=== PATIENT | female | born 1975 | race African-American/Black ===

== ENCOUNTER 2018-12-13 07:01 | Day surgery (SDC) | payer BC ==
[2018-12-12 08:54] VITALS: BMI 28.8
[2018-12-13 07:38] VITALS: BP 117/67; PULSE 70; TEMP 97.9
--- NOTE | 2018-12-13 09:48 | HP ---
[facility] - Chief Complaint Chief Complaint: left knee pain - Past Medical History Allergies/Adverse Reactions: Allergies Allergy/AdvReac Type Severity Reaction Status Date / Time No Known Allergies Allergy Verified 12/12/18 08:54 ...LMP: 11/11/18 - Current Medications Current Medications: Home Medications Medication Instructions Recorded Prednisolone [Millipred Dp] 10 mg PO DAILY 12/12/18 Rituximab [Rituxan -] 0 mg IVPB ASDIR 12/12/18 Oxycodone HCl/Acetaminophen 1 tab PO Q6H #10 tablet MDD 4 12/13/18 [Percocet 5-325 mg Tablet] Satellite Physical Exam - Physical Examination Vital Signs: Vital Signs Period Temp Pulse Resp BP Sys/Wilde Pulse Ox Last 24 Hr 97.9 F-97.9 F 70-70 18-18 117-117/67-67 100 General Appearance: Well Nourished, Well Developed, Alert & Oriented x3 ENT: Clear Lung: Normal air movement Heart: Regular rate & rhythm Extremities: Other (left knee- + swelling, + ttp ,decr rom, + mcmurrays, nvi, MRI + mt) Neurological: Intact, Alert, Oriented Satellite Impression/Plan - Impression/Plan Impression: left knee internal derangement Operative Procedure: left knee arthroscopy Date to be Performed: 12/13/18
== END 2018-12-13 08:21 | disposition home or self-care (01) ==
LOC: JASU-SURG 07:01
PROVIDERS: ATTEND Orthopaedic Surgery
DX: Z53.8 Procedure and treatment not carried out for other reasons (principal)
CPT/HCPCS: 84703

== ENCOUNTER 2019-01-26 10:00 | Day surgery (SDC) | payer BC, OTHER ==
[2019-01-25 13:40] VITALS: BMI 28.8
[2019-01-26] MEDS ORDERED: BUPIVACAINE HCL/PF 0.5% (5 MG/ML) 30 ML VIAL IJ ONE (11:31)
[2019-01-26] MEDS ORDERED: LIDOCAINE 1%-EPI 1:100,000 30 ML MDV IJ ONE (11:31)
[2019-01-26] MEDS ORDERED: HYDROCORTISONE SOD SUCCINATE 2 ML ONE (12:31)
[2019-01-26] MEDS ORDERED: fentaNYL CITRATE 250 MCG/5 ML VIAL ONE (12:33)
[2019-01-26] MEDS ORDERED: ceFAZolin SODIUM 1 GM VIAL IVPB ONE (12:41)
--- NOTE | 2019-01-26 12:47 | HP ---
[facility] - Chief Complaint Chief Complaint: left knee pain - Past Medical History Allergies/Adverse Reactions: Allergies Allergy/AdvReac Type Severity Reaction Status Date / Time No Known Allergies Allergy Verified 01/26/19 10:48 ...LMP: 01/23/19 - Current Medications Current Medications: Home Medications Medication Instructions Recorded Rituximab [Rituxan -] 0 mg IVPB ASDIR 12/12/18 Acetaminophen [Tylenol] 650 mg PO PRN PRN 01/25/19 Oxycodone HCl/Acetaminophen 1 tab PO Q6H #20 tablet MDD 4 01/26/19 [Percocet 5-325 mg Tablet] Satellite Physical Exam - Physical Examination Vital Signs: Vital Signs Period Temp Pulse Resp BP Sys/Wilde Pulse Ox Last 24 Hr 98.2 F 94 16 121/71 100-100 General Appearance: Well Nourished, Well Developed, Alert & Oriented x3 ENT: Clear Lung: Normal air movement Heart: Regular rate & rhythm Extremities: Other (left knee- + swelling, + ttp, decr rom, + mcmurrays, nvi, MRI + mt) Neurological: Intact, Alert, Oriented Satellite Impression/Plan - Impression/Plan Impression: left knee internal derangement Operative Procedure: left knee arthroscopy Date to be Performed: 01/26/19
[2019-01-26] MEDS ORDERED: LIDOCAINE HCL 1%, 10 MG/ML (20ML VIAL) INF ONE (12:50)
[2019-01-26] MEDS ORDERED: BUPIVACAINE HCL/PF 0.5% (5MG/ML) 10 ML VIAL IJ ONE (12:50)
--- NOTE | 2019-01-26 13:16 | OP ---
Operative Note - Note: Operative Date: 01/26/19 ([facility]) Pre-Operative Diagnosis: left knee internal derangement Operation: left knee arthroscopy with synovectomy Post-Operative Diagnosis: Same as Pre-op Surgeon: Jarek Avendaño Anesthesia: General, Local Specimens Removed: shavings Estimated Blood Loss (mls): 5 Operative Report Dictated: Yes
[2019-01-26] MEDS ORDERED: ONDANSETRON 4 MG/2 ML VIAL IVPUSH PRN (13:23)
[2019-01-26] MEDS ORDERED: oxyCODONE HCL 5 MG TABLET PO PRN ×2 (13:23)
[2019-01-26] MEDS ORDERED: LACTATED RINGERS SOLUTION 1,000 ML IV SCH (13:30)
[2019-01-26 15:54] VITALS: BP 121/82; PULSE 76
--- NOTE | 2019-01-26 16:02 | OP ---
DATE OF OPERATION: 01/26/2019 PREOPERATIVE DIAGNOSIS: Internal derangement, left knee. POSTOPERATIVE DIAGNOSIS: Internal derangement, left knee. PROCEDURE: Arthroscopy, left knee with synovectomy. SURGEON: Jarek Avendaño MD ANESTHESIA: General with endotracheal intubation. POSITION: Supine. CLOSURES: 4-0 nylon. DESCRIPTION OF PROCEDURE: Patient was taken to the operating room on January 26, 2019. General anesthesia with endotracheal intubation was administered by the anesthesiologist. IV Keflex was administered prophylactically prior to the case. Left lower extremity was prepped and draped in the usual sterile fashion. Medial and lateral infrapatellar portal sites were infiltrated with 1% Xylocaine with epinephrine. Both ports were then made with 15 blade followed by blunt trocar. Scope was placed in the lateral infrapatellar port and up the suprapatellar pouch. The entire knee was found to be inundated with very thick synovial tissue. This was debrided using shaver throughout both gutters, the pouch, and the anterior aspect of the knee, 90 degrees at the notch also was full with hypertrophic synovium. A synovial biopsy was performed and sent to Pathology. The ACL and PCL were found to be intact. With valgus stress on the knee, the medial compartment was entered, and medial meniscus was intact. However, half of it was no longer present. It had been eroded by the synovium, and there was no araceli tear, however. Medial femoral condyle was found to be intact as was the medial tibial plateau. In a figure-4 position, the lateral compartment was entered. The lateral meniscus also was found to be partially eroded away but no araceli tear synovium, and this compartment was debrided again using shaver. The lateral femoral condyle was found to be devoid of any articular cartilage especially on the lateral edge throughout the range of motion. No loose cartilage was seen. The knee was flushed out with irrigation. Portal was closed with 4-0 nylon. Sterile pressure dressing was applied to the knee. Patient transferred to recovery in stable condition. No complications. Estimated blood loss negligible. Samantha [id number]
[2019-01-26] MEDS ORDERED: oxyCODONE HCL 5 MG TABLET ONE (16:10)
[2019-01-26 16:52] VITALS: TEMP 98.2
--- NOTE | 2019-01-31 09:14 | PATH ---
Surgical Pathology Report Patient Name: RADHA MORAES [facility]. Rec. #: [id number] /Age/Gender: 1975 (Age: 43) / F Account: [id number] Location: [facility] SUR[facility]ICAL Taken: 01/26/2019 Received: 01/26/2019 Reported: 01/31/2019 Physicians: Jarek Avendaño M.D. Specimen(s) Received A: LEFT KNEE SHAVINGS B: SYNOVIAL BIOPSY Clinical History Left knee tear Final Diagnosis A. KNEE SHAVINGS, LEFT, ARTHROSCOPY WITH SYNOVECTOMY: FRAGMENTS OF FIBROSYNOVIAL TISSUE WITH MARKED CHRONIC FOCAL ACUTE INFLAMMATION, AND REACTIVE SYNOVIAL HYPERPLASIA. B. SYNOVIAL, BIOPSY: FRAGMENTS OF FIBROSYNOVIAL TISSUE WITH MARKED CHRONIC INFLAMMATION, AND REACTIVE SYNOVIAL HYPERPLASIA. Comment: Although these findings are non-specific, dense lymphoplasmacytic infiltrate involving synovium with reactive synovial hyperplasia may be seen in association with rheumatoid arthritis. Correlation with clinical/radiologic and serologic findings is suggested. Electronically Signed Andra Hernandez M.D. Gross Description A. Received in formalin, labeled "left knee shavings," is a 5 x 3 x 2 cm. aggregate of terrell-yellow soft tissue fragments. A ocean import representative portion is submitted in one cassette. B. Received in formalin labeled "synovial biopsy" multiple irregular fragments of yellow-terrell soft tissue ranging in size from 0.3-0.7 cm, measuring 1.5 x 1 x 0.3 cm in aggregate. The entire specimen is submitted in one cassette. MLSZ/01/26/2019 sansana/01/26/2019
== END 2019-01-26 17:25 | disposition home or self-care (01) ==
LOC: JASU-SURG 10:00
PROVIDERS: ATTEND Orthopaedic Surgery
PROC: 0SBD4ZZ Excision of Left Knee Joint, Percutaneous Endoscopic Approach (ICD-10-PCS; principal; 2019-01-26 12:00)
DX: M23.92 Unspecified internal derangement of left knee (principal)
CPT/HCPCS: 84703; 88304-TC; 88305-TC; 94760

== ENCOUNTER 2024-05-24 23:58 | Emergency (ER) | payer BC, OTHER ==
[2024-05-25 00:05] VITALS: BP 118/72; RESP 20; TEMP 100.9; BMI 27.4
[2024-05-25] MEDS ORDERED: ACETAMINOPHEN 325 MG TABLET (FP) ONE (00:29)
[2024-05-25] MEDS ORDERED: ONDANSETRON *ODT* 4 MG TABLET ONE (00:29)
[2024-05-25] MEDS: ACETAMINOPHEN 325 MG TABLET (FP) PO ONE (00:33)
[2024-05-25] MEDS: ONDANSETRON *ODT* 4 MG TABLET SL ONE (00:34)
[2024-05-25] MEDS ORDERED: MAG HYDROX/AL HYDROX/SIMETH 30 ML UNIT-DOSE CUP ONE (00:43)
[2024-05-25] MEDS: MAG HYDROX/AL HYDROX/SIMETH 30 ML UNIT-DOSE CUP PO ONE (00:46)
[2024-05-25 01:42] VITALS: PULSE 77
== END 2024-05-25 01:56 | disposition home or self-care (01) ==
LOC: JER 23:58
DX: U07.1 COVID-19 (principal); R50.9 Fever, unspecified; M79.10 Myalgia, unspecified site; R11.0 Nausea; J02.9 Acute pharyngitis, unspecified; R09.81 Nasal congestion
CPT/HCPCS: 0241U-QW; 99283-25; Q0162

== ENCOUNTER 2024-07-21 21:03 | Emergency (ER) | payer OTHER ==
[2024-07-21 21:15] VITALS: BP 151/94; PULSE 93; RESP 16; TEMP 98.4; BMI 28.9
== END 2024-07-21 22:51 | disposition home or self-care (01) ==
LOC: JER 21:03
DX: M79.661 Pain in right lower leg (principal); M79.89 Other specified soft tissue disorders
CPT/HCPCS: 93005; 93010; 99283-25